=== PATIENT | female | born 1995 | race Caucasian/White ===

== ENCOUNTER 2016-08-26 11:45 | Emergency (ER) | payer OTHER ==
[~2016-08-26] VITALS: Ht 162.6 cm; Wt 94.4 kg
[2016-08-26] MEDS ORDERED: PRENATA3 PO (11:58)
[2016-08-26 12:35] LABS: HEMATOCRIT 35.7 % (37.0-47.0); HEMOGLOBIN 11.9 g/dl (12.0-16.0); IMMATURE GRANULOCYTES 0.3 % (0.0-1.0); MEAN CELL VOLUME 81.7 fL CALC (80.0-100.0); MEAN CORPUSCULAR HGB 27.2 pG CALC (26.0-32.0); MEAN CORPUSCULAR HGB CONC 33.3 g/L CALC (32.0-36.0); NEUT# 11.93 thou/uL (2.00-7.15); RED BLOOD COUNT 4.37 mill/uL (4.20-5.60); RED CELL DISTRI WIDTH 16.6 % (11.5-15.5); URINE BILIRUBIN - DIPSTICK NEGATIVE (NEGATIVE); URINE BLOOD DIPSTICK NEGATIVE (NEGATIVE); URINE CLARITY CLEAR; URINE COLOR YELLOW; URINE GLUCOSE - DIPSTICK NEGATIVE (NEGATIVE); URINE KETONE NEGATIVE (NEGATIVE); URINE NITRITE - DIPSTICK NEGATIVE (Negative); URINE PROTEIN - DIPSTICK NEGATIVE (NEG-TRACE); URINE UROBILINOGEN - DIPSTICK 0.2 E.U./dL (0.2)
[2016-08-26 12:36] LABS: URINE LEUK ESTERASE TRACE (NEGATIVE)
[2016-08-26 12:48] LABS: ALBUMIN 3.6 g/dL (3.2-5.0); ALKALINE PHOSPHATASE 142 u/l (38-126); AMYLASE 37 u/l (30-110); ANION GAP 16 (6-22 (CALC)); BILIRUBIN, TOTAL 0.4 mg/dL (0.0-1.4); BUN 7 mg/dL (7-17); BUN/CREATININE RATIO 14 (12-20 (CALC)); CALCIUM 9.6 mg/dL (8.4-10.2); CARBON DIOXIDE 18 mmol/l (22-30); CHLORIDE 107 mmol/l (95-108); CREATININE 0.5 mg/dL (0.5-1.0); GFR > 60 ML/MIN (>=60 (CALC)); GFR FOR AFR.AMER. > 60 ML/MIN (>=60 (CALC)); GLUCOSE 91 mg/dL (65-105); LIPASE 79 u/l (23-300); POTASSIUM 4.2 mmol/l (3.5-5.1); SGOT/AST 14 u/l (14-36); SGPT/ALT 23 u/l (9-52); SODIUM 136 mmol/l (137-146); TOTAL PROTEIN 7.1 g/dL (6.3-8.2)
[2016-08-26 13:31] LABS: BETA-HCG, QUANT(RESULT NUMBER) 21334 mIU/mL
[2016-08-26 15:22] VITALS: BP 134/76
== END 2016-08-26 15:38 | disposition home or self-care (01) | DRG 781 ==
LOC: ED 11:45
PROVIDERS: Emergency Medicine
DX: O26.892 Other specified pregnancy related conditions, second trimester (principal); R10.30 Lower abdominal pain, unspecified; Z3A.17 17 weeks gestation of pregnancy

== ENCOUNTER 2017-02-06 23:33 | Inpatient (IN) | payer MEDICAID ==
[~2017-02-06] VITALS: Ht 162.6 cm; Wt 117.9 kg
[~2017-02-06 23:33] MED LIST: FERR SULFATE325 MG PO; PRENATA3 PO
--- NOTE | 2017-02-06 23:33 | NUR ---
ARRIVAL TO OB UNIT ACCOMPANIED BY S.O. C/O LINDA @ 1940.
--- NOTE | 2017-02-06 23:35 | NUR ---
EDC 02/07/17. DENIES CONTRACTIONS/BLEEDING. FETUS ACTIVE. ORIENTED TO ROOM AND CALL SYSTEM. PLAN OF CARE TO MONITOR FOR WELL-BEING AND UTERINE ACTIVITY, OBTAIN URINE SAMPLE FOR UA AND DOA, TEST FOR RUPTURED MEMBRANES, DISCUSSED WITH PATIENT AND AGREED UPON.
[2017-02-07] VITALS (23 sets, daily range): BP systolic 99–146; BP diastolic 50–86
--- NOTE | 2017-02-07 00:05 | NUR ---
STERILE SPECULUM EXAM PERFORMED WITHOUT DIFFICULTY. PATIENT HAS MODERATE AMOUNT AMNIOTIC FLUID IN POSTERIOR FORNIX, WITH THIN MECONIUM STAINING. CERVICAL EXAM /-.
[2017-02-07 00:08] LABS: BARBITURATES NEGATIVE (NEGATIVE); COCAINE NEGATIVE (NEGATIVE); METHADONE NEGATIVE (NEGATIVE); OXCYCODONE NEGATIVE (NEGATIVE); TETRAHYDROCANNABIONOL NEGATIVE (NEGATIVE); TRICYLIC ANTIDEPRESSANTS NEGATIVE (NEGATIVE)
--- NOTE | 2017-02-07 00:10 | NUR ---
CALL PLACED TO DR. MCKINLEY AND REPORT GIVEN RE/ PATIENT COMPLAINTS AND HISTORY, ROM STATUS, MONITOR WITH NO UTERINE ACTIVITY BUT REASURRING FHR. ORDERS RECEIVED TO ADMIT TO IN-PATIENT STATUS. PLAN OF CARE REVIEWED WITH PATIENT AND AGREED UPON.
[2017-02-07 00:22] LABS: URINE BILIRUBIN - DIPSTICK SMALL (NEGATIVE); URINE BLOOD DIPSTICK MODERATE (NEGATIVE); URINE CLARITY SLIGHT CLOUDY; URINE COLOR YELLOW; URINE GLUCOSE - DIPSTICK NEGATIVE (NEGATIVE); URINE KETONE NEGATIVE (NEGATIVE); URINE LEUK ESTERASE NEGATIVE (NEGATIVE); URINE NITRITE - DIPSTICK NEGATIVE (Negative); URINE PH 6.5 (4.5-8.0); URINE PROTEIN - DIPSTICK 100 mg/dL (NEG-TRACE); URINE SPECIFIC GRAVITY 1.025; URINE UROBILINOGEN - DIPSTICK 0.2 E.U./dL (0.2)
[2017-02-07 00:26] LABS: URINE SQUAMOUS EPITHELIAL CELL MODERATE EPI/hpf (0-FEW)
[2017-02-07 00:28] LABS: URINE BACTERIA MODERATE hpf
[2017-02-07 01:26] LABS: ALBUMIN 2.9 g/dL (3.2-5.0); ALKALINE PHOSPHATASE 162 u/l (38-126); ANION GAP 13 (6-22 (CALC)); BILIRUBIN, TOTAL 0.3 mg/dL (0.0-1.4); BUN 13 mg/dL (7-17); BUN/CREATININE RATIO 18 (12-20 (CALC)); CALCIUM 9.5 mg/dL (8.4-10.2); CARBON DIOXIDE 20 mmol/l (22-30); CHLORIDE 110 mmol/l (95-108); CREATININE 0.7 mg/dL (0.5-1.0); GFR > 60 ML/MIN (>=60 (CALC)); GFR FOR AFR.AMER. > 60 ML/MIN (>=60 (CALC)); GLUCOSE 104 mg/dL (65-105); SGOT/AST 15 u/l (14-36); SGPT/ALT 23 u/l (9-52); SODIUM 139 mmol/l (137-146); TOTAL PROTEIN 5.7 g/dL (6.3-8.2)
[2017-02-07 01:28] LABS: HEMATOCRIT 34.6 % (37.0-47.0); HEMOGLOBIN 11.9 g/dl (12.0-16.0); MEAN CORPUSCULAR HGB 30.3 pG CALC (26.0-32.0); MEAN CORPUSCULAR HGB CONC 34.4 g/L CALC (32.0-36.0); NEUT# 10.48 thou/uL (2.00-7.15); RED BLOOD COUNT 3.93 mill/uL (4.20-5.60); RED CELL DISTRI WIDTH 15.3 % (11.5-15.5)
--- NOTE | 2017-02-07 02:50 | NUR ---
Pt up to bathroom with assistance, leaking meconium stained fluid. voided 300ml greenish fluid
--- NOTE | 2017-02-07 04:55 | NUR ---
Pt up to bathroom with assistance, states pain 5/10 in abdomen but does not want anything for pain at this time.
--- NOTE | 2017-02-07 07:00 | NUR ---
PT RESTING IN BED, SIGNIFICANT OTHER AT BEDSIDE. RATES PAIN 4-5/10, BUT REFUSES PAIN MEDICATION. ASSESSMENT DONE, WNL EXCEPT FOR BLE PITTING EDEMA 1+, DTR'S ARE +2, NEGATIVE CLONUS. PT DENIES HEADACHE OR VISUAL DISTURBANCES. DISCUSSED PLAN OF CARE WITH PT AND SIGNIFICANT OTHER, INCLUDING LABOR REVIEW, POSITIONS, PAIN MEDICATION AND EPIDURAL. BOTH VERBALIZED UNDERSTANDING.
--- NOTE | 2017-02-07 07:05 | NUR ---
PT UP TO BATHROOM, VOIDED 200ML OF YELLOW URINE. EFM OFF SO PT CAN AMBULATE IN THE HALLWAYS AT THIS TIME.
--- NOTE | 2017-02-07 07:37 | NUR ---
PT SITTING UP IN RECLINER, EFM RESTARTED. FRESH WATER AND APPLE JUICE GIVEN. DENIES ANY NEEDS.
--- NOTE | 2017-02-07 07:54 | NUR ---
PT UP TO VOID, THEN BACK TO BED, DR. MCKINLEY AT BEDSIDE, SVE DONE, %/-2. MD DISCUSSED PLAN OF CARE WITH PT AND SIGNIFICANT OTHER, BOTH VERBALIZED UNDERSTANDING. PT THEN REQUESTING TO BE BACK TO CHAIR, REPOSITIONED.
--- NOTE | 2017-02-07 08:30 | NUR ---
EFM OFF AT THIS TIME SO PT CAN AMBULATE IN THE HALLWAYS.
--- NOTE | 2017-02-07 09:05 | NUR ---
PT BACK TO RECLINER, EFM ON, PT HAS SOME BACK PAIN, RATES 5/10, DENIES NEED FOR PAIN MEDICATION. SIGNIFICANT OTHER AT BEDSIDE.
--- NOTE | 2017-02-07 09:25 | NUR ---
PT MOVED TO ROOM 252 AT THIS TIME. EFM OFF SO PT CAN BE ON THE BIRTHING BALL.
--- NOTE | 2017-02-07 10:00 | NUR ---
EFM RESTARTED AT THIS TIME.
--- NOTE | 2017-02-07 10:05 | NUR ---
DR. MCKINLEY CALLED FOR AN UPDATE, UPDATED THAT PT IS HAVING IRREGULAR MILD CONTRACTIONS, DESPITE AMBULATING AND BEING ON THE BIRTHING BALL, ORDERS RECEIVED TO START PITOCIN. DISCUSSED PLAN OF CARE WITH PT AND SIGNIFICANT OTHER, BOTH VERBALIZED UNDERSTANDING.
--- NOTE | 2017-02-07 10:18 | NUR ---
MONITORING SYSTEM SWITCHED TO MADDIE MCCOY AT THIS TIME.
--- NOTE | 2017-02-07 10:34 | NUR ---
PITOCIN STARTED PER ORDER AT THIS TIME.
--- NOTE | 2017-02-07 11:35 | NUR ---
PT REQUESTING AT THIS TIME, STATING "I FEEL LIKE I WON'T BE ABLE TO DELIVER VAGINALLY, AND I AM SCARED THE SHOULDER WILL GET STUCK". DR. MCKINLEY NOTIFIED AND IS COMING IN TO TALK TO PT.
--- NOTE | 2017-02-07 12:05 | NUR ---
DR. MCKINLEY AT BEDSIDE, DISCUSSING OPTIONS WITH PT, PT DECIDED SHE WILL PROCEED WITH THE . WILL PREP PT PER ORDER.
--- NOTE | 2017-02-07 12:12 | NUR ---
NOTIFIED KIM PUENTES RN NURSING DESIGN SUPERVISOR OF SCHEDULED C/S FOR 1329. HE WILL NOTIFY TEAM.
--- NOTE | 2017-02-07 12:25 | NUR ---
RN CLIPPERS USED TO SHAVE SUPRAPUBIC AREA AT THIS TIME.
--- NOTE | 2017-02-07 12:38 | NUR ---
ROUTINE PREOP MEDS GIVEN, SEE EMAR, LR BOLUS STARTED.
--- NOTE | 2017-02-07 13:10 | NUR ---
KEVIN INSERTED USING STERILE TECHNIQUE, PT TOLERATED PROCEDURE WELL.
--- NOTE | 2017-02-07 13:13 | NUR ---
EFM OFF AT THIS TIME, PT LEAVING TO GO TO OR DOWNSTAIRS WITH OR STAFF.
--- NOTE | 2017-02-07 16:05 | NUR ---
PT BACK TO ROOM 207 FROM RECOVERY. TRANSFERED TO BED VIA EZ SLIDE. IVF WITH PITOCIN RUNNING WITHOUT PROBLEMS. LOW TRANSVERSE ABDOMINAL DRESSING IS CLEAN, DRY AND INTACT. FUNDUS IS FIRM AT UMBILICUS, WITH MODERATE TO HEAVY BLEEDING. PERICARE DONE. KEVIN DRAINING CLEAR YELLOW URINE. SCDS IN PLACE AND ON. INITIAL POST TEACHING DONE WITH PT AND SIGNIFICANT OTHER, BOTH VERBALIZED UNDERSTANDING. INCENTIVE SPIROMETER TEACHING DONE WELL, PT ABLE TO DO IT CORRECTLY, UP TO 1999. DENIES ANY PAIN. SEE FUNDAL CHECKS FOR FURTHER DOCUMENTATION.
--- NOTE | 2017-02-07 16:35 | NUR ---
PT , C/O FEELING SLIGHTLY LIGTHEADED, LOCHIA IS MODERATE TO HEAVY, WILL MONITOR. VS STABLE.
--- NOTE | 2017-02-07 16:47 | NUR ---
PT STATES SHE NO LONGER FEELS LIGHTHEADED. GRAPEFRUIT SIZE CLOT EXPELLED DURING FUNDAL CHECK, FUNDUS FIRM AT UMBILICUS. DR. MCKINLEY NOTIFIED OF CLOT, VITAL SIGNS AND EARLIER COMPLAINTS OF FEELING LIGHTHEADED, WHICH IS NOW RESOLVED AND THAT CYTOTEC PO WAS GIVEN. ORDERS RECEIVED TO CONTINUE TO MONITOR PT.
--- NOTE | 2017-02-07 17:09 | NUR ---
PT HAD 200ML EMESIS, ZOFRAN GIVEN FOR NAUSEA.
--- NOTE | 2017-02-07 17:37 | NUR ---
Ami HELLER, DIRECTOR DIVERSITY IN ROOM SEEING PT.
--- NOTE | 2017-02-07 17:45 | NUR ---
PT VISITING WITH FAMILY AND FRIENDS, VS STABLE, LOCHIA REMAINS MODERATE. KEVIN EMPTIED FOR 75ML DARK YELLOW URINE. PERICARE DONE. DENIES ANY PAIN OR NEEDS AT THIS TIME.
--- NOTE | 2017-02-07 18:15 | NUR ---
PT HAD ANOTHER EMESIS 200ML OF CLEAR FLUID. VS AND LOCHIA STABLE. COLD WASH CLOTH GIVEN FOR FOREHEAD, INSTRUCTED PT TO DECREASE PO INTAKE AT THIS TIME UNTIL NAUSEA IS RESOLVED.
--- NOTE | 2017-02-07 18:30 | NUR ---
DR. MCKINLEY AT BEDSIDE, SEEING PT. ORDERS RECEIVED TO GIVE PT A 1000ML LR BOLUS, LR BOLUS STARTED.
--- NOTE | 2017-02-07 18:50 | NUR ---
REPORT GIVEN TO Beatrice CASTANEDA RN.
--- NOTE | 2017-02-07 18:50 | NUR ---
BEDSIDE REPORT RECEIVED FROM NOREEN JOHNSON RN ON PT STATUS. PT RESTING IN BED SUPINE. SKIN APPEARS PALE. PT STATES SHE STILL DOES NOT FEEL VERY WELL. IV INFUSING PER MED PUMP. LR BOLUS COMPLETED AND DOCUMENTED. KEVIN CATHETER DRAINING CLEAR YELLOW URINE. LEG STRAP IN PLACE ON RIGHT THIGH. SCD'S ON AND WORKING. DENIES PAIN. DRESSING CLEAN AND DRY. FUNDUS MASSAGED AND FIRM AT 1 BELOW UMBILICUS.
--- NOTE | 2017-02-07 21:19 | NUR ---
PULSE OX READING 93 ON GREAT RIGHT TOE. NOTED SENSOR TAPE TO BE COMING UP. ATTEMPTED TO REINFORCE TAPE, BUT STILL READING 93%. NEW SENSOR APPLIED TO GREAT TOE, SAME READING. THEN APPLIED TO RIGHT MIDDLE FINGER WITH SAME RESULT. ENCOURAGED PT TO USE INCENTIVE SPIROMETER. IT GETTING INCENTIVE SPIROMETER UP TO 2000 TIME 10 TIMES. PULSE OXIMETER READING TO 98%. ENCOURAGED PT TO CONTINUE TO DO TEN TIMES EVERY 1-2 HOURS. CHRISTIAN CARE PROVIDED. NOTED MODERATE RUBRA LOCHIA. FUNDUS FIRM AT 1 BELOW U AND NO GUSHES OR CLOTS NOTED. CHRISTIAN CARE PROVIDED. NOTIFIED Beatrice LANIER RN OF BLEEDING. SIGNIFICANT OTHER AT BEDSIDE. INFANT IN OPEN CRIB WITH NO SIGNS OF RESPIRATORY DISTRESS. PT DENIES ANY OTHER NEEDS AT THIS TIME. ENCOURAGED PT TO CALL WITH ANY NEEDS OR CONCERNS.
--- NOTE | 2017-02-07 21:47 | NUR ---
PT SLEEPING. O2 SATS CONTINUE. RESP EVEN AND UNLABORED. SOMEWHAT SHALLOW WHEN PT IS SLEEPING. BED IS IN LOW POSITION AND CALL LIGHT WITHIN REACH. SIGNIFICANT OTHER AT BEDSIDE.
--- NOTE | 2017-02-07 23:23 | NUR ---
PT RESTING IN BED. FF AT UMBILICUS. PERICARE DONE. PT REQUESTED APPLE SAUCE. ENCOURAGED HER TO GO EASY DUE TO VOMITING EARLIER. SIGNIFICANT OTHER HOLDING . FUSSY.
[2017-02-08] VITALS (11 sets, daily range): BP systolic 99–133; BP diastolic 42–71
--- NOTE | 2017-02-08 02:03 | NUR ---
PT RESTING AND STATES PAIN IS 0/10 AT THIS TIME. HAS NO OTHER COMPLAINTS. KEVIN DRAINING DARK RAÚL URINE. IV LR WITH 20 UNITS OF PITOCIN INFUSING PER MED PUMP AT 125CC/HOUR. SIGNIFICANT OTHER AND SLEEPING AT BEDSIDE.
--- NOTE | 2017-02-08 04:21 | NUR ---
CBC DRAWN FROM RT HAND WITHOUT DIFFICULTY AND MINIMAL BLEEDING. VS STABLE. KEVIN CONTINUES TO DRAIN DARK RAÚL URINE. PT TURNED TO RIGHT SIDE. IV INFUSING AT 125ML/HR PER MED PUMP. DENIES PAIN.
[2017-02-08 05:20] LABS: HEMOGLOBIN 7.5 g/dl (12.0-16.0); IMMATURE GRANULOCYTES 0.5 % (0.0-1.0); MEAN CELL VOLUME 89.4 fL CALC (80.0-100.0); MEAN CORPUSCULAR HGB 30.5 pG CALC (26.0-32.0); MEAN CORPUSCULAR HGB CONC 34.1 g/L CALC (32.0-36.0); NEUT# 11.96 thou/uL (2.00-7.15); RED BLOOD COUNT 2.46 mill/uL (4.20-5.60); RED CELL DISTRI WIDTH 15.5 % (11.5-15.5)
--- NOTE | 2017-02-08 06:05 | NUR ---
KEVIN CATHETER DISCONTINUED WITHOUT DIFFICULTY. PT AMBULATES TO RESTROOM. GAIT STEADY AND EVEN. DENIES DIZZINESS, STATES SLIGHT FATIGUE. EATS APPLESAUCE. DENIES NAUSEA AND VOMITING. INSTRUCTED IN PERICARE. VOICES UNDERSTANDING.
--- NOTE | 2017-02-08 06:46 | NUR ---
REPORT READY FOR DAY SHIFT NURSES.
--- NOTE | 2017-02-08 06:59 | NUR ---
BEDSIDE REPORT GIVEN TO JAY MACK RN ON PT STATUS.
--- NOTE | 2017-02-08 07:00 | NUR ---
PT SITS IN BED, HOLDING INFANT, REPORT IN PT ROOM. S/O IN ROOM.
--- NOTE | 2017-02-08 08:30 | NUR ---
PT AMBULATED TO [facility] TO WATCH NB BATH, BACK TO ROOM TO SIT IN CHAIR. TOLERATED ALL WITH OUT PROBLEM. DENEIS FEELING DIZZY, DENIES NAUSEA.
--- NOTE | 2017-02-08 08:40 | NUR ---
PT TO BED, WANTS TO NAP.
--- NOTE | 2017-02-08 09:30 | NUR ---
DR MCKINLEY IN TO SEE PT, PT GIVEN OPTION OF TAKING IRON TO INCREASE HGB OR BLOOD TRANSFUSION, PT STATES SHE WILL CONSENT TO RECEIVING BLOOD.
--- NOTE | 2017-02-08 09:35 | NUR ---
PT RESTS IN BED, SIGNS CONSENT FOR BLOOD TRASNFUSION.
--- NOTE | 2017-02-08 11:05 | NUR ---
IV NS INFUSES IN PREPARATION FOR BLOOD TRASNSUSION, 1ST UNIT PRBC VERIFIED IN [facility] AND WITH PT ID BANDS AND BEGUN PT AWARE TO CALL FOR NURSE IF FEELING IV PAIN, BACK PAIN, SOB AND OTHER SIGNS OF REACTION.
--- NOTE | 2017-02-08 11:20 | NUR ---
NURSE AT BEDSIDE SINCE BEGINNING OF TRASNFUSION, PT SITS QUIETLY, TALKS WITH VISITOR.
--- NOTE | 2017-02-08 13:10 | NUR ---
1ST UNIT PRBC DONE, PT OOB TO VOID 650 ML, CHRISTIAN CARE DONE PT TOLERATED ALL W/O ASSISTANCE. PT TO CHAIR, MEDICATED FOR PAIN WITH TORADOL.
--- NOTE | 2017-02-08 13:40 | NUR ---
PT SITS IN CHAIR EATING LUNCH, TALKS WITH VISITORS. 2ND UNIT PRBC VERIFIED 2 NURSES IN [facility] AND WITH PT ID, INFUSES VIA IV PUMP W/O PROBLEM. NURSE AT BEDSIDE.
--- NOTE | 2017-02-08 14:00 | NUR ---
PT SITS IN BED TALKS WITH VISITORS.
--- NOTE | 2017-02-08 15:00 | NUR ---
PT ENC TO DRINK FLUIDS.
--- NOTE | 2017-02-08 16:35 | NUR ---
PT OOB TO VOID, CHRISTIAN CARE DONE. DR MCKINLEY HERE TO SEE PT. PT SITS IN CHAIR, STATES SHE FEELS BETTER, HAS MORE ENERGY. BLOOD DRAW FOR CBC.
[2017-02-08 16:50] LABS: HEMATOCRIT 27.3 % (37.0-47.0); HEMOGLOBIN 9.5 g/dl (12.0-16.0); IMMATURE GRANULOCYTES 0.8 % (0.0-1.0); MEAN CELL VOLUME 88.3 fL CALC (80.0-100.0); MEAN CORPUSCULAR HGB 30.7 pG CALC (26.0-32.0); MEAN CORPUSCULAR HGB CONC 34.8 g/L CALC (32.0-36.0); NEUT# 10.91 thou/uL (2.00-7.15); RED BLOOD COUNT 3.09 mill/uL (4.20-5.60); RED CELL DISTRI WIDTH 14.8 % (11.5-15.5)
--- NOTE | 2017-02-08 17:15 | NUR ---
PT IN BED, TALKING WITH VISITOR.
--- NOTE | 2017-02-08 18:15 | NUR ---
PT SITS IN BED TALKS WITH VISITORS.
--- NOTE | 2017-02-08 18:54 | NUR ---
REPORT TO Joanna MANDUJANO RN IN PT ROOM.
--- NOTE | 2017-02-08 18:55 | NUR ---
REPORT RECEIVED BY MATT DEY. PT IS SITTING IN BED . IN ROOM. PT DENIES ANY NEEDS AT THIS TIME CALL LIGHT IN REACH.
--- NOTE | 2017-02-08 19:30 | NUR ---
PT IS SITTING IN BED. ASSESSMENT DONE AND VS CHARTED. PT STATED SHE HAS NOT HAD A BM. ENCOURAGE PT TO AMBULATE IN THE HALLWAY . PT VERBALIZED UNDERSTANDING. PT STATED THAT SHE HAS PAIN 4/10 IN INCISION AND PT REFUSED PAIN MEDICATION AT THIS TIME. PT DENIES ANY NEEDS AT THIS TIME.
--- NOTE | 2017-02-08 20:40 | NUR ---
Joanna Leahy RN concern that incision leaking. MIGUEL Cavanaugh observed low transverse abdominal incision well approximated except for about 2 inches on pt's left side which is very slowly oozing bright red serosanguinous blood onto jay pad; no redness or swelling present. MIGUEL Cavanaugh call to Dr. Cruz re: same. stated OK to apply steri strips to affected area. MIGUEL Cavanaugh applied steri strips with explanation to patient and new jay pad placed under patient's abdominal apron, Joanna Leahy RN present.
--- NOTE | 2017-02-08 22:30 | NUR ---
PT IS RESTING IN BED HOLDING . PT STATED SHE IS STARTING TO PASS GAS. ENCOURAGE PT TO DRINK HER PRUNE JUICE AND AMBULATE IN THE HALLWAY. PT VERBALIZED UNDERSTANDING. STERI STRIPS IN PLACE AND SMALL AMOUNT OF BLEEDING NOTED ON PAD. PT DENIES ANY NEEDS AT THIS TIME. S/O IN ROOM.
--- NOTE | 2017-02-09 02:02 | NUR ---
PT IS SITTING IN BED . PT HAS NO S/S DISTRESS NOTED. PT DENIES ANY NEEDS AT THIS TIME CALL LIGHT IN REACH.
[2017-02-09 03:56] VITALS: BP 128/79
--- NOTE | 2017-02-09 04:51 | NUR ---
PT AMBULATING IN THE HALLWAY WITH S/O AT SIDE.
--- NOTE | 2017-02-09 05:59 | NUR ---
REPORT READY FOR ONCOMING SHIFT.
--- NOTE | 2017-02-09 07:00 | NUR ---
Received care of pt. Sitting up in bed. Significant other at bedside. Assessment as charted. Pt encouraged to ambulate and drink plenty fluids. 2+ non-pitting edema noted on lower extremeties. Pt encouraged to raise on pillow while in bed. Lochia moderate with no clots, no trickling. Denies bruising, weakness or fainting. No petechiae noted. Vital signs as charted. Left side of incision with steri strips. Some serous drainage noted, jay pad in place. Pt states she viewed all discharge videos. Discharge planning reviewed at this time. Call light within reach.
[2017-02-09 07:41] VITALS: BP 131/75
--- NOTE | 2017-02-09 07:53 | NUR ---
Breakfast tray given, tolerating well.
--- NOTE | 2017-02-09 08:50 | NUR ---
Dr Cruz in to see pt. Serous fluid draining from left side of incision. Wound culture obtained by MD. Fluid removed with sterile cotton-tipped swabs by MD. Minimal to no drainage noted at this time. No bleeding. Sterile 4x4 gauze applied. [place] pad applied. Incision care reviewed with pt. Received new orders. Will continue to monitor.
[2017-02-09] MEDS ORDERED: LORTAB 7.57.5 MG PO (10:02)
[2017-02-09] MEDS ORDERED: IBUPROFEN600 MG PO (10:03)
--- NOTE | 2017-02-09 10:41 | NUR ---
Visitor in room at this time. Pt with no complaints or concerns.
--- NOTE | 2017-02-09 11:00 | NUR ---
PT REFUSED GOURMET MEAL, STATES SHE PREFERS REGULAR TRAY.
--- NOTE | 2017-02-09 13:50 | NUR ---
Discharge instructions given. Patient verbalizes understanding of same. Discharged in stable condition via Wheelchair to Home with significant other. All belongings sent with pt. Prescriptions for Motrin, Lortab, and Ferrous Sulfate given. Pt has appt with Dr Cruz on 02/11/17. Staple remover kit sent home with pt. Pt instructed to take kit to appt. Pt to call MD or return to ER if continuous bleeding noted at incision site. Taye intact.
== END 2017-02-09 13:50 | disposition home or self-care (01) | DRG 765 ==
LOC: OBOP 23:33 → OB 23:33 → OBOP 02-07 00:09 → OB 02-07 00:10
PROC: 10D00Z1 Extraction of Products of Conception, Low, Open Approach (ICD-10-PCS; principal; 2017-02-07)
PROC: 30233N1 Transfusion of Nonautologous Red Blood Cells into Peripheral Vein, Percutaneous Approach (ICD-10-PCS; 2017-02-08)
PROC: 30233N1 Transfusion of Nonautologous Red Blood Cells into Peripheral Vein, Percutaneous Approach (ICD-10-PCS; 2017-02-08)
DX: O42.02 Full-term premature rupture of membranes, onset of labor within 24 hours of rupture (principal); D62 Acute posthemorrhagic anemia; O90.81 Anemia of the puerperium; O90.2 Hematoma of obstetric wound; O33.5XX0 Maternal care for disproportion due to unusually large fetus, not applicable or unspecified; O77.0 Labor and delivery complicated by meconium in amniotic fluid; Z3A.40 40 weeks gestation of pregnancy; Z37.0 Single live birth
CPT/HCPCS: J2270; P9016

== ENCOUNTER 2017-02-11 21:56 | Emergency (ER) | payer MEDICAID ==
[~2017-02-11] VITALS: Ht 162.6 cm; Wt 108.0 kg
[~2017-02-11 21:56] MED LIST changes: +IBUPROFEN600 MG PO; +LORTAB 7.57.5 MG PO
[2017-02-11 22:47] LABS: HEMATOCRIT 27.9 % (37.0-47.0); HEMOGLOBIN 9.6 g/dl (12.0-16.0); IMMATURE GRANULOCYTES 1.3 % (0.0-1.0); MEAN CELL VOLUME 89.7 fL CALC (80.0-100.0); MEAN CORPUSCULAR HGB 30.9 pG CALC (26.0-32.0); MEAN CORPUSCULAR HGB CONC 34.4 g/L CALC (32.0-36.0); NEUT# 9.13 thou/uL (2.00-7.15); RED BLOOD COUNT 3.11 mill/uL (4.20-5.60); RED CELL DISTRI WIDTH 14.5 % (11.5-15.5)
[2017-02-11 23:06] LABS: ALBUMIN 2.9 g/dL (3.2-5.0); ALKALINE PHOSPHATASE 201 u/l (38-126); ANION GAP 13 (6-22 (CALC)); BILIRUBIN, TOTAL 0.3 mg/dL (0.0-1.4); BUN 9 mg/dL (7-17); BUN/CREATININE RATIO 13 (12-20 (CALC)); CALCIUM 9.1 mg/dL (8.4-10.2); CARBON DIOXIDE 25 mmol/l (22-30); CHLORIDE 107 mmol/l (95-108); CREATININE 0.7 mg/dL (0.5-1.0); GFR > 60 ML/MIN (>=60 (CALC)); GFR FOR AFR.AMER. > 60 ML/MIN (>=60 (CALC)); GLUCOSE 98 mg/dL (65-105); POTASSIUM 3.9 mmol/l (3.5-5.1); SGOT/AST 43 u/l (14-36); SGPT/ALT 41 u/l (9-52); SODIUM 141 mmol/l (137-146); TOTAL PROTEIN 5.6 g/dL (6.3-8.2)
[2017-02-12 01:08] VITALS: BP 120/62
== END 2017-02-12 01:00 | disposition home or self-care (01) | DRG 776 ==
LOC: ED 21:56 → ED-I 22:30 → ED 02-12 01:00
PROVIDERS: Emergency Medicine
DX: O16.5 Unspecified maternal hypertension, complicating the puerperium (principal); Z91.19 Patient's noncompliance with other medical treatment and regimen

== ENCOUNTER 2017-06-04 19:58 | Emergency (ER) | payer SELFPAY ==
[~2017-06-04] VITALS: Ht 162.6 cm; Wt 99.6 kg
[2017-06-04 21:37] LABS: HEMATOCRIT 42.7 % (37.0-47.0); HEMOGLOBIN 13.9 g/dl (12.0-16.0); IMMATURE GRANULOCYTES 0.4 % (0.0-1.0); MEAN CELL VOLUME 83.6 fL CALC (80.0-100.0); MEAN CORPUSCULAR HGB 27.2 pG CALC (26.0-32.0); MEAN CORPUSCULAR HGB CONC 32.6 g/L CALC (32.0-36.0); NEUT# 11.74 thou/uL (2.00-7.15); RED BLOOD COUNT 5.11 mill/uL (4.20-5.60); RED CELL DISTRI WIDTH 13.9 % (11.5-15.5)
[2017-06-04 21:39] LABS: URINE BILIRUBIN - DIPSTICK NEGATIVE (NEGATIVE); URINE BLOOD DIPSTICK TRACE-INTACT (NEGATIVE); URINE COLOR YELLOW; URINE GLUCOSE - DIPSTICK NEGATIVE (NEGATIVE); URINE KETONE NEGATIVE (NEGATIVE); URINE NITRITE - DIPSTICK NEGATIVE (Negative); URINE PROTEIN - DIPSTICK NEGATIVE (NEG-TRACE); URINE UROBILINOGEN - DIPSTICK 0.2 E.U./dL (0.2)
[2017-06-04 21:42] LABS: URINE CLARITY SL CLOUDY; URINE LEUK ESTERASE SMALL (NEGATIVE)
[2017-06-04 21:53] LABS: ALBUMIN 4.9 g/dL (3.2-5.0); ALKALINE PHOSPHATASE 213 u/l (38-126); AMYLASE 39 u/l (30-110); ANION GAP 21 (6-22 (CALC)); BILIRUBIN, TOTAL 0.5 mg/dL (0.0-1.4); BUN 11 mg/dL (7-17); BUN/CREATININE RATIO 12 (12-20 (CALC)); CARBON DIOXIDE 21 mmol/l (22-30); CHLORIDE 104 mmol/l (95-108); CREATININE 0.8 mg/dL (0.5-1.0); GFR > 60 ML/MIN (>=60 (CALC)); GFR FOR AFR.AMER. > 60 ML/MIN (>=60 (CALC)); LIPASE 60 u/l (23-300); POTASSIUM 4.3 mmol/l (3.5-5.1); SGOT/AST 26 u/l (14-36); SGPT/ALT 35 u/l (9-52); SODIUM 142 mmol/l (137-146); TOTAL PROTEIN 8.4 g/dL (6.3-8.2)
[2017-06-04 21:57] LABS: URINE SQUAMOUS EPITHELIAL CELL MODERATE EPI/hpf (0-FEW)
[2017-06-04] MEDS ORDERED: BACTRIM DS1 TAB PO (23:22)
[2017-06-05] VITALS: BP 120/65
== END 2017-06-04 23:57 | disposition home or self-care (01) | DRG 690 ==
LOC: ED 19:58
PROVIDERS: Emergency Medicine
DX: N39.0 Urinary tract infection, site not specified (principal); B96.20 Unspecified Escherichia coli [E. coli] as the cause of diseases classified elsewhere; I10 Essential (primary) hypertension
CPT/HCPCS: Q9967

== ENCOUNTER 2018-08-28 16:56 | Emergency (ER) | payer MEDICAID ==
[~2018-08-28] VITALS: Ht 162.6 cm; Wt 97.0 kg
[~2018-08-28 16:56] MED LIST changes: +BACTRIM DS1 TAB PO
[2018-08-28] MEDS ORDERED: ALL DAY10 MG PO (17:32)
[2018-08-28] MEDS ORDERED: CEPHALEXIN500 M1 PO (17:33)
[2018-08-28 17:45] VITALS: BP 129/81
== END 2018-08-28 17:45 | disposition home or self-care (01) ==
LOC: ED 16:56
DX: T63.431A Toxic effect of venom of caterpillars, accidental (unintentional), initial encounter (principal); L03.012 Cellulitis of left finger; I10 Essential (primary) hypertension